=== PATIENT | female | born 1940 ===

== ENCOUNTER 2022-08-11 09:25 | Outpatient (REF) | payer OTHER, SELFPAY ==
[2022-08-11 09:55] LABS: Appearance Urine Cloudy (Clear); Bilirubin Urine Negative (Negative); Blood Urine 2+ (Negative); Color Urine Yellow (Yellow); Glucose Urine Negative (Negative); Ketones Urine Negative (Negative); Leukocyte Esterase Urine Trace (Negative); Nitrite Urine Positive (Negative); Protein Urine 2+ (Negative); Specific Gravity Urine 1.025 (1.000-1.030); Urobilinogen Urine 0.2 (0.2-1.0); pH Urine 5.5 (5.0-8.5)
[2022-08-11 10:16] LABS: Bacteria Urine Moderate; Squamous Epithelial Cell Urine Moderate (None-Few); WBC Urine 50-100 (0-5)
== END 2022-08-11 09:26 | disposition home or self-care (01) ==
LOC: NPINS 09:25
PROVIDERS: PCP Family Medicine; Visit Provider Nurse Practitioner Gerontology
DX: R50.9 Fever, unspecified (principal); R53.1 Weakness
CPT/HCPCS: 81003; 81015; 87086; 87186